=== PATIENT | male | born 1950 | race Caucasian/White ===

== ENCOUNTER → 2016-09-11 | Outpatient (CLI) | payer MEDICARE, OTHER ==
[~2016-09-11] MED LIST: ASPI-515 PO; ATOR20TA9 PO; LOSA100T6 PO; MULT-516 PO; OMEG-69 PO
[2016-09-11 10:09] LABS: HEMOGLOBIN 15.5 g/dL (13.7-18.0)
[2016-09-11 10:22] LABS: ASPARTATE AMINO TRANSFERASE 17 U/L (15-37); BLOOD UREA NITROGEN 15 mg/dL (7-18)
== END | disposition home or self-care (01) ==
LOC: STAR 09:06
PROVIDERS: ATTEND Neurological Surgery
DX: Z01.818 Encounter for other preprocedural examination (principal); M50.30 Other cervical disc degeneration, unspecified cervical region
CPT/HCPCS: 36415; 71020; 80053; 81003; 85025; 85610; 85730; 93005